=== PATIENT | female | born 2005 | race Caucasian/White ===

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

== ENCOUNTER 2023-08-02 11:46 | Outpatient (CLI) | payer MEDICAID | END 2023-08-02 11:47 | disposition home or self-care (01) | LOC: DI 11:46 | PROVIDERS: ATTEND Internal Medicine Gastroenterology | DX: Z53.9 Procedure and treatment not carried out, unspecified reason (principal) ==